=== PATIENT | female | born 1980 | race African-American/Black ===

== ENCOUNTER 2018-06-12 08:52 | Outpatient (CLI) | payer OTHER | END 2018-06-12 08:53 | disposition home or self-care (01) | LOC: DTY/OP 08:52 | PROVIDERS: ATTEND Family Medicine | DX: E66.9 Obesity, unspecified (principal); Z68.42 Body mass index [BMI] 45.0-49.9, adult; Z71.3 Dietary counseling and surveillance | CPT/HCPCS: 97802 ==

== ENCOUNTER 2018-07-19 20:30 | Outpatient (CLI) | payer OTHER | END 2018-07-19 20:31 | disposition home or self-care (01) | LOC: SLEEPLAB 20:30 | PROVIDERS: ATTEND Family Medicine | DX: G47.33 Obstructive sleep apnea (adult) (pediatric) (principal); G47.9 Sleep disorder, unspecified | CPT/HCPCS: 95811 ==

== ENCOUNTER 2020-12-13 14:44 | Outpatient (CLI) | payer OTHER | END 2020-12-13 14:45 | disposition home or self-care (01) | LOC: BICMAMMO 14:44 | PROVIDERS: ATTEND Family Medicine | DX: Z12.31 Encounter for screening mammogram for malignant neoplasm of breast (principal) | CPT/HCPCS: 77063; 77067 ==

== ENCOUNTER 2021-08-03 13:21 | Outpatient (CLI) | payer MEDICARE | END 2021-08-03 13:22 | disposition home or self-care (01) | LOC: BICMRI 13:21 | PROVIDERS: ATTEND Orthopaedic Surgery | DX: M23.92 Unspecified internal derangement of left knee (principal); S83.242A Other tear of medial meniscus, current injury, left knee, initial encounter ==

== ENCOUNTER 2022-04-06 10:56 | Outpatient (CLI) | payer MEDICARE | END 2022-04-06 10:57 | disposition home or self-care (01) | LOC: BICMAMMO 10:56 | PROVIDERS: ATTEND Family Medicine | DX: Z12.31 Encounter for screening mammogram for malignant neoplasm of breast (principal); Z80.3 Family history of malignant neoplasm of breast | CPT/HCPCS: 77063; 77067 ==

== ENCOUNTER 2022-11-07 08:16 | Outpatient (CLI) | payer OTHER | END 2022-11-07 08:17 | disposition home or self-care (01) | LOC: BICMAMMO 08:16 | PROVIDERS: ATTEND Family Medicine | DX: N63.24 Unspecified lump in the left breast, lower inner quadrant (principal) | CPT/HCPCS: 77066; G0279 ==

== ENCOUNTER 2025-07-24 10:39 | Outpatient (CLI) | payer OTHER | END 2025-07-24 10:40 | disposition home or self-care (01) | LOC: SCSRAD 10:39 | PROVIDERS: ATTEND Family Medicine | DX: J40 Bronchitis, not specified as acute or chronic (principal) | CPT/HCPCS: 71046 ==